=== PATIENT | female | born 1970 | race Caucasian/White ===

== ENCOUNTER 2019-01-27 15:28 | Emergency (ER) | payer BC ==
[~2019-01-27] VITALS: Ht 157.5 cm; Wt 63.0 kg
[~2019-01-27 15:28] MED LIST: LIDO700A32 TOP
[2019-01-27 15:56] VITALS: BP_SYST 129
[2019-01-27] MEDS ORDERED: LORA0.5T PO ×2 (17:21→17:25)
== END 2019-01-27 17:34 | disposition home or self-care (01) ==
LOC: ER 15:29
DX: F41.0 Panic disorder [episodic paroxysmal anxiety] (principal); F41.9 Anxiety disorder, unspecified; F32.9 Major depressive disorder, single episode, unspecified; Z79.899 Other long term (current) drug therapy
CPT/HCPCS: 99284

== ENCOUNTER 2023-12-24 18:07 | Emergency (ER) | payer BC ==
[~2023-12-24] VITALS: Ht 157.5 cm; Wt 78.4 kg
[~2023-12-24 18:07] MED LIST changes: +LORA0.5T PO
[2023-12-24] MEDS: LORazepam 1 MG tablet PO ONE (18:35)
[2023-12-24] MEDS ORDERED: HYDR-3686 PO (18:54)
[2023-12-24] MEDS ORDERED: LORA-269 PO ×2 (18:54→19:26)
[2023-12-24 19:49] VITALS: BP 107/61; PULSE 63; RESP 16; TEMP 98.6; O2SAT 98
== END 2023-12-24 19:51 | disposition home or self-care (01) ==
LOC: ER 18:07
DX: F41.9 Anxiety disorder, unspecified (principal); Z72.89 Other problems related to lifestyle; Z79.899 Other long term (current) drug therapy
CPT/HCPCS: 93005; 99283